=== PATIENT | male | born 1980 | race Caucasian/White ===

== ENCOUNTER 2021-02-16 06:33 | Emergency (ER) | payer SELFPAY ==
[~2021-02-16 06:33] MED LIST: ATENOLOL50 MG PO; CIPRO XR500 MG PO; CIPROFLOXACIN500 M1 OR; CIPROFLOXACN500 MG PO; CLINDAMYCIN300 MG PO; DEPO-MEDROL80 MG/ML IM; DEXILANT60 MG OR; DILAUDID 2MG2 MG/TA1 PO; DILAUDID2 MG PO; ERYTHROMYCIN250 MG PO; FLEXERIL PO; FLEXERIL10 MG OR; FLEXERIL10 MG PO; HYDROXYZ HCL25 MG PO; KEFLEX500 MG PO; LORTAB 10 PO; LORTAB 7.5 OR; LORTAB 7.5 PO; LORTAB5 PO; NAPROSYN500 MG PO; NO HOME MEDS; NO MEDS; OMEPRAZOLE40 MG PO; PREVACID30 M2 PO; PRILOSEC20 MG PO; REMERON15 MG PO; ULTRAM50 M1 PO; ULTRAM50 MG OR; VEETIDS250 MG OR; ZOFRAN ODT8 MG OR; ZPAK PO
[2021-02-16 06:40] VITALS: BP 145/71
[2021-02-16 07:24] LABS: HEMATOCRIT 43.3 % (39.0-50.0); IMMATURE GRANULOCYTES 0.3 % (0.0-5.0); MEAN CELL VOLUME 87.7 fL CALC (80.0-100.0); MEAN CORPUSCULAR HGB 30.4 pG CALC (26.0-32.0); MEAN CORPUSCULAR HGB CONC 34.6 g/dL CAL (32.0-36.0); NEUT# 3.8 thou/uL (1.82-7.42); RED BLOOD COUNT 4.94 mill/uL (4.70-6.10); RED CELL DISTRI WIDTH 12.4 % (11.5-15.5)
[2021-02-16 07:33] LABS: ALBUMIN 4.7 g/dL (3.2-5.0); ALKALINE PHOSPHATASE 50 u/l (38-126); ANION GAP 13 (6-22 (CALC)); BILIRUBIN, TOTAL 0.7 mg/dL (0.0-1.4); BUN 10 mg/dL (9-20); BUN/CREATININE RATIO 10 (12-20 (CALC)); CARBON DIOXIDE 27 mmol/l (22-30); CHLORIDE 101 mmol/l (95-108); CREATININE 1.1 mg/dL (0.7-1.3); GFR > 60 ML/MIN (>=60 (CALC)); GFR FOR AFR.AMER. > 60 ML/MIN (>=60 (CALC)); LIPASE 84 u/l (23-300); POTASSIUM 4.2 mmol/l (3.5-5.1); SGOT/AST 24 u/l (17-59); SODIUM 137 mmol/l (137-146); TOTAL PROTEIN 7.6 g/dL (6.3-8.2)
[2021-02-16 07:40] LABS: URINE BILIRUBIN - DIPSTICK NEGATIVE (NEGATIVE); URINE BLOOD DIPSTICK NEGATIVE (NEGATIVE); URINE COLOR YELLOW; URINE GLUCOSE - DIPSTICK NEGATIVE (NEGATIVE); URINE KETONE NEGATIVE (NEGATIVE); URINE LEUK ESTERASE NEGATIVE (NEGATIVE); URINE PROTEIN - DIPSTICK NEGATIVE (NEG-TRACE); URINE SPECIFIC GRAVITY 1.025; URINE UROBILINOGEN - DIPSTICK 0.2 E.U./dL (0.2)
[2021-02-16 07:42] LABS: URINE NITRITE - DIPSTICK NEGATIVE (Negative)
[2021-02-16] MEDS ORDERED: TAMSULOSIN0.4 MG PO (08:20)
[2021-02-16] MEDS ORDERED: TORADOL PO (08:20)
[2021-02-16] MEDS ORDERED: ZOFRAN4 MG/TAB PO (08:20)
== END 2021-02-16 08:40 | disposition home or self-care (01) | DRG 694 ==
LOC: ED 06:33
DX: N13.2 Hydronephrosis with renal and ureteral calculous obstruction (principal); K21.9 Gastro-esophageal reflux disease without esophagitis; Z87.442 Personal history of urinary calculi

== ENCOUNTER 2021-03-18 02:49 | Emergency (ER) | payer SELFPAY ==
[~2021-03-18] VITALS: Ht 188 cm; Wt 104.0 kg
[~2021-03-18 02:49] MED LIST changes: +TAMSULOSIN0.4 MG PO; +TORADOL PO; +ZOFRAN4 MG/TAB PO
[2021-03-18 03:42] LABS: HEMATOCRIT 42.5 % (39.0-50.0); HEMOGLOBIN 14.7 g/dl (14.0-18.0); IMMATURE GRANULOCYTES 0.3 % (0.0-5.0); MEAN CELL VOLUME 87.3 fL CALC (80.0-100.0); MEAN CORPUSCULAR HGB 30.2 pG CALC (26.0-32.0); MEAN CORPUSCULAR HGB CONC 34.6 g/dL CAL (32.0-36.0); NEUT# 4.26 thou/uL (1.82-7.42); RED BLOOD COUNT 4.87 mill/uL (4.70-6.10); RED CELL DISTRI WIDTH 12.4 % (11.5-15.5)
[2021-03-18 04:03] LABS: ALBUMIN 4.2 g/dL (3.2-5.0); ALKALINE PHOSPHATASE 49 u/l (38-126); AMYLASE 35 u/l (30-110); ANION GAP 13 (6-22 (CALC)); BILIRUBIN, TOTAL 0.6 mg/dL (0.0-1.4); BUN 15 mg/dL (9-20); BUN/CREATININE RATIO 12 (12-20 (CALC)); CARBON DIOXIDE 26 mmol/l (22-30); CHLORIDE 104 mmol/l (95-108); CREATININE 1.3 mg/dL (0.7-1.3); GFR > 60 ML/MIN (>=60 (CALC)); GFR FOR AFR.AMER. > 60 ML/MIN (>=60 (CALC)); LIPASE 80 u/l (23-300); SGOT/AST 22 u/l (17-59); SODIUM 139 mmol/l (137-146)
[2021-03-18 05:00] VITALS: BP 140/60
== END 2021-03-18 05:26 | disposition left against medical advice (07) | DRG 392 ==
LOC: ED 02:49
PROVIDERS: Emergency Medicine
DX: R10.9 Unspecified abdominal pain (principal); K21.9 Gastro-esophageal reflux disease without esophagitis; Z87.442 Personal history of urinary calculi

== ENCOUNTER 2022-08-13 18:25 | Emergency (ER) | payer SELFPAY ==
[~2022-08-13] VITALS: Ht 188 cm; Wt 100.0 kg
[2022-08-13 20:00] LABS: HEMOGLOBIN 15.6 g/dl (14.0-18.0); IMMATURE GRANULOCYTES 0.3 % (0.0-5.0); MEAN CELL VOLUME 88.8 fL CALC (80.0-100.0); MEAN CORPUSCULAR HGB 30.8 pG CALC (26.0-32.0); MEAN CORPUSCULAR HGB CONC 34.7 g/dL CAL (32.0-36.0); NEUT# 7.46 thou/uL (1.82-7.42); RED BLOOD COUNT 5.07 mill/uL (4.70-6.10); RED CELL DISTRI WIDTH 12.4 % (11.5-15.5)
[2022-08-13 20:03] LABS: URINE BILIRUBIN - DIPSTICK NEGATIVE (NEGATIVE); URINE BLOOD DIPSTICK LARGE (NEGATIVE); URINE COLOR YELLOW; URINE GLUCOSE - DIPSTICK NEGATIVE (NEGATIVE); URINE KETONE NEGATIVE (NEGATIVE); URINE LEUK ESTERASE NEGATIVE (NEGATIVE); URINE PROTEIN - DIPSTICK NEGATIVE (NEG-TRACE); URINE SPECIFIC GRAVITY 1.025; URINE UROBILINOGEN - DIPSTICK 0.2 E.U./dL (0.2)
[2022-08-13 20:04] LABS: URINE NITRITE - DIPSTICK NEGATIVE (Negative)
[2022-08-13 20:11] LABS: URINE WBC 0-2 WBC/hpf (0-5)
[2022-08-13 20:15] LABS: ALBUMIN 4.9 g/dL (3.2-5.0); ALKALINE PHOSPHATASE 55 u/l (38-126); ANION GAP 15 (6-22 (CALC)); BILIRUBIN, TOTAL 0.5 mg/dL (0.0-1.4); BUN 19 mg/dL (9-20); BUN/CREATININE RATIO 15 (12-20 (CALC)); CARBON DIOXIDE 25 mmol/l (22-30); CHLORIDE 101 mmol/l (95-108); CREATININE 1.3 mg/dL (0.7-1.3); GFR FOR AFR.AMER. > 60 ML/MIN (>=60 (CALC)); GFR OTHER RACES 60 ML/MIN (>=60 (CALC)); LIPASE 86 u/l (23-300); POTASSIUM 4.1 mmol/l (3.5-5.1); SGOT/AST 29 u/l (17-59); SODIUM 137 mmol/l (137-146); TOTAL PROTEIN 8.1 g/dL (6.3-8.2)
[2022-08-13] MEDS ORDERED: TRAMADOL HCL50 MG PO (20:40)
[2022-08-13] MEDS ORDERED: TAMSULOSIN0.4 MG PO (20:40)
[2022-08-13 20:45] VITALS: BP 137/101
[2022-08-14] MEDS ORDERED: TRAMADOL HYDROC50 M1 PO (09:27)
== END 2022-08-13 20:55 | disposition home or self-care (01) | DRG 694 ==
LOC: ED 18:25
PROVIDERS: Family Medicine
DX: N20.1 Calculus of ureter (principal)